=== PATIENT | female | born 1965 | race Two or more races ===

== ENCOUNTER 2020-07-23 10:53 | Emergency (ER) | payer OTHER ==
[~2020-07-23] VITALS: Ht 144.8 cm; Wt 78.9 kg
--- NOTE | 2020-07-23 12:38 | NUR ---
PT BROUGHT BACK FROM TRIAGE WITH CHIEF COMPLAINT OF RASH ON RIGHT SIDE OF HEAD AND EAR STARTED MONDAY. DENIES N/V, CP, SOB SEEN AT [facility]RGENT [facility]ARE MONDAY FOR BUMP OF BACK OF HEAD, GIVEN STEROIDS AND ABX.
--- NOTE | 2020-07-23 12:55 | NUR ---
AVRIL PHILLIP AT BEDSIDE FOR EVALUATION
[2020-07-23] MEDS ORDERED: FLUCONAZOLE 100 MG TABLET ONE (13:05)
[2020-07-23] MEDS ORDERED: FLUCONAZOLE 50 MG TABLET PO ONE (13:30)
[2020-07-23 13:34] VITALS: BP 151/65
--- NOTE | 2020-07-23 13:35 | NUR ---
Patient given discharge instructions and they have confirmed that they understand the instructions. Patient ambulatory with steady gait.
== END 2020-07-23 13:36 | disposition home or self-care (01) ==
LOC: ED 11:44
DX: H60.11 Cellulitis of right external ear (principal); B35.0 Tinea barbae and tinea capitis
CPT/HCPCS: 99283